=== PATIENT | male | born 1955 | race Caucasian/White ===

== ENCOUNTER 2018-08-30 09:58 | Emergency (ER) | payer MEDICARE ==
[2018-08-30] MEDS ORDERED: Acetaminophen 500 MG TAB ONE (12:05)
--- NOTE | 2018-08-30 16:57 | CT ---
CT OF THE BRAIN WITHOUT CONTRAST: 08/30/[address] of the brain was done emergently at 1026 for evaluation after a fall. There are no p rior scans available for comparison. The ventricles are normal in size with no shift. There is no sign of epidural or subdural bleeding. A ttention is drawn to the right frontal lobe on slice 19 where there is a small rounded 1 cm hyperdens ity near the hernandez-white junction. This could be a small amount of parenchymal hemorrhage from recent trauma. It could just as easily be some volume averaging or a small angioma. It is definite enough to catch one's eye and need further followup. Otherwise, there is no sign of bleeding, edema, stroke, o r mass. The skull appears intact with no fractures. The paranasal sinuses and mastoid air cells are c lear. IMPRESSION: 1 cm hyperdense focus in the right frontal lobe as described above. A tiny bit of parenchymal/cortica l bleeding is possible. Depending upon the clinical presentation of the patient, a followup scan in 4 to 5 hours should be considered. Findings discussed with Dr. Joya at 1054 on 08/30/18. POS: HOME
--- NOTE | 2018-08-30 17:09 | CT ---
CT OF THE BRAIN WITHOUT CONTRAST: 08/30/[address] scan of the brain was done without contrast at 1453 and is compared with the scan done earlier t he same day. The small right frontal hyperdensity is still present, but it is no larger and it is sli ghtly less distinct that it was previously. This increases the possibility that this is a small amoun t of parenchymal bleeding. The facet that it has not grown significantly in size is comforting. My un derstanding is that clinically, the patient is doing very well. The remainder of the scan was unremarkable. There remains no sign of epidural or subdural bleeding. T he ventricular sizes are normal. There is no evidence of other acute disease. The skull and visible b ones continue to appear normal. The paranasal sinuses and mastoid air cells are clear. IMPRESSION: Small hyperdense focus in the right frontal lobe a bit more difficult to see scanned this morning, an d it is a little less distinct. The possibility of this being a small area of parenchymal hemorrhage seems higher. I would treat it as such. Assuming the clinical exam and his ongoing progress is good, then I would advise getting a followup scan in one week to take a final look at the area. If it is st ill visible and unchanged, then other exams might be needed to prove whether it is a small angioma or not. At this point, I favor it being a small area of parenchymal bleeding. Findings and discussion about next steps done with Dr. Joya at 1513 on 08/30/18. POS: HOME
--- NOTE | 2018-08-30 17:48 | CT ---
CT OF THE CERVICAL SPINE 08/30/[address] of the cervical spine was done following trauma. Axial slices were acquired, then coronal a nd sagittal reconstructions were done. No fracture, dislocation, or acute bony change was seen at any cervical level. Disc space narrowing is present at most levels below C3 but is most prominent at C5- C6 and C6-C7. There is some irregularity of the inferior end plate of C7 in particular maybe even wit h a little erosion of the posterior part of the end plate. This appears chronic and not acute. Findin gs by level follow: C1-C2: No acute findings. C2-C3: No acute findings. C3-C4: Moderate to se ere right foraminal narrowing due to osteophytes. C4-C5: Moderate bilateral foraminal narrowing due to osteophytes. C5-C6: Moderate bilateral foraminal narrowing due to osteophytes. A posterior disc osteophyte complex narrows the AP diameter of the canal to about 9 mm. C6-C7: Moderate bilateral foraminal narrowing. AP diameter of the canal at this level is about 9 to 1 0 mm. C7-T1: No acute findings. T1-T2: No acute findings. T2-T3: No acute findings. The lung apices are clear. There is no sign of pneumothorax. IMPRESSION: Diffuse cervical spondylosis worst at the C5 through C7 levels. There is central canal stenosis, part icularly at C5-C6. POS: HOME
== END 2018-08-30 15:33 | disposition home or self-care (01) ==
LOC: BURERS 09:58
DX: S09.90XA Unspecified injury of head, initial encounter (principal); I10 Essential (primary) hypertension; Z79.899 Other long term (current) drug therapy; Z79.82 Long term (current) use of aspirin; W19.XXXA Unspecified fall, initial encounter
CPT/HCPCS: 70450; 72125